=== PATIENT | male | born 1985 | race Caucasian/White ===

== ENCOUNTER 2017-09-05 19:12 | Inpatient (IN) | payer MEDICAID, OTHER ==
[2017-09-05 22:25] LABS: ADD MAN DIFF? NO
[2017-09-05 22:29] LABS: WHITE BLOOD COUNT 18.8 10^3/ul (4.8-10.8)
[2017-09-05 22:29] LABS: BASOPHIL # 0.1 10^3/ul (0.0-0.1); BASOPHILS % 0.3 % (0.0-2.0); EOSINOPHILS # 0.5 10^3/ul (0.0-0.5); EOSINOPHILS % 2.9 % (0.0-7.0); HEMATOCRIT 40.1 % (42.0-52.0); HEMOGLOBIN 14.1 g/dl (14.0-18.0); LYMPHOCYTES # 3.1 10^3/ul (0.8-2.9); LYMPHOCYTES % 16.3 % (15.0-51.0); MEAN CORPUSCULAR HEMOGLOBIN 30.7 pg (29.0-33.0); MEAN CORPUSCULAR HGB CONC 35.2 g/dl (32.0-37.0); MEAN CORPUSCULAR VOLUME 87.2 fl (82.0-101.0); MEAN PLATELET VOLUME 9.6 fl (7.4-10.4); MONOCYTE # 1.4 10^3/ul (0.3-0.9); MONOCYTES % 7.5 % (0.0-11.0); NEUTROPHIL # 13.7 10^3/ul (1.6-7.5); NEUTROPHILS % 72.5 % (39.0-77.0); PLATELET COUNT 311 10^3/UL (140-415); RED CELL DISTRIBUTION WIDTH 10.9 % (11.5-14.5)
[2017-09-05 22:47] LABS: LACTIC ACID 1.8 mmol/L (0.5-2.0)
[2017-09-05 22:49] LABS: INR 1.01; PROTIME 13.4 Sec (11.9-14.9)
[2017-09-05 22:50] LABS: ALANINE AMINOTRANSFERASE 17 IU/L (13-69); ALBUMIN 3.9 g/dl (3.3-4.9); ALBUMIN/GLOBULIN RATIO 1.18; ALKALINE PHOSPHATASE 139 IU/L (42-121); ANION GAP 16 (8-16); ASPARTATE AMINO TRANSFERASE 12 IU/L (15-46); BILIRUBIN,INDIRECT 0.5 mg/dl (0-1.1); BILIRUBIN,TOTAL 0.5 mg/dl (0.2-1.3); BLOOD UREA NITROGEN 9 mg/dl (7-20); CALCIUM 8.6 mg/dl (8.4-10.2); CARBON DIOXIDE 26 mmol/L (21-31); CHLORIDE 101 mmol/L (97-110); GLUCOSE 378 mg/dl (70-220); PARTIAL THROMBOPLASTIN TIME 30.3 Sec (25.0-35.0); POTASSIUM 3.5 mmol/L (3.5-5.1); SODIUM 139 mmol/L (135-144); TOTAL PROTEIN 7.2 g/dl (6.1-8.1)
[2017-09-05 23:05] LABS: TROPONIN-I < 0.012 ng/ml (0.00-0.12)
[2017-09-06] MEDS: morphine 4 MG/ML VIAL IV ×2 (00:38→16:28)
[2017-09-06] MEDS: ONDANSETRON 4 MG INJ IV (00:38)
[2017-09-06 00:50] LABS: LACTIC ACID 1.4 mmol/L (0.5-2.0)
[2017-09-06] MEDS ORDERED: VANCOMYCIN IV PER PHARMACY XX (02:00)
[2017-09-06] MEDS ORDERED: BISACODYL (EC) 5 MG TAB PO (02:00)
[2017-09-06] MEDS ORDERED: NACL 0.9% 3 ML SYG IV (02:00)
[2017-09-06] MEDS ORDERED: DOCUSATE SODIUM 100 MG CAP PO (02:00)
[2017-09-06] MEDS: PIPER-TAZO 3.375 GM IV (PMX) 100 ML IVPB (02:02)
[2017-09-06] MEDS: ACCU-CHEK XX (02:28)
[2017-09-06] MEDS ORDERED: GLUCOSE GEL 15 GRAM TUBE BUCCAL ×2 (02:30→10:00)
[2017-09-06] MEDS ORDERED: GLUCOSE GEL 15 GRAM TUBE PO ×4 (02:30→10:00)
[2017-09-06] MEDS ORDERED: GLUCAGON 1 MG INJ IM ×2 (02:30→10:00)
[2017-09-06] MEDS ORDERED: DEXTROSE 50% 50 ML SYRINGE IV ×4 (02:30→10:00)
[2017-09-06] MEDS: VANCOMYCIN 1 GM (PMX) 250 ML IVPB (02:46)
[2017-09-06] MEDS: HYDROCODONE/APAP (5/325) TAB PO ×3 (03:22→16:07)
[2017-09-06 03:45] LABS: ADD MAN DIFF? NO
[2017-09-06 04:03] LABS: HEMOGLOBIN A1C 7.2 % (0-5.9)
[2017-09-06 04:14] LABS: LACTIC ACID 1.4 mmol/L (0.5-2.0)
[2017-09-06 04:18] LABS: ALANINE AMINOTRANSFERASE 22 IU/L (13-69); ALBUMIN 3.6 g/dl (3.3-4.9); ALBUMIN/GLOBULIN RATIO 1.09; ALKALINE PHOSPHATASE 126 IU/L (42-121); ANION GAP 14 (8-16); ASPARTATE AMINO TRANSFERASE 16 IU/L (15-46); BILIRUBIN,INDIRECT 0.6 mg/dl (0-1.1); BILIRUBIN,TOTAL 0.6 mg/dl (0.2-1.3); BLOOD UREA NITROGEN 9 mg/dl (7-20); CALCIUM 8.5 mg/dl (8.4-10.2); CARBON DIOXIDE 26 mmol/L (21-31); CHLORIDE 107 mmol/L (97-110); CHOL/HDL RATIO 3.3 RATIO; CHOLESTEROL 151 mg/dl (100-200); GLUCOSE 273 mg/dl (70-220); HDL CHOLESTEROL 45 mg/dl (28-63); LDL CHOLESTEROL,CALCULATED 80 mg/dl; MAGNESIUM 1.7 mg/dl (1.7-2.5); POTASSIUM 3.8 mmol/L (3.5-5.1); SODIUM 143 mmol/L (135-144); TOTAL PROTEIN 6.9 g/dl (6.1-8.1); TRIGLYCERIDES 128 mg/dl (0-149)
[2017-09-06 04:20] LABS: WHITE BLOOD COUNT 17.9 10^3/ul (4.8-10.8)
[2017-09-06 04:20] LABS: BASOPHIL # 0.1 10^3/ul (0.0-0.1); BASOPHILS % 0.3 % (0.0-2.0); EOSINOPHILS # 0.5 10^3/ul (0.0-0.5); HEMATOCRIT 38.6 % (42.0-52.0); HEMOGLOBIN 13.7 g/dl (14.0-18.0); MEAN CORPUSCULAR HEMOGLOBIN 30.8 pg (29.0-33.0); MEAN CORPUSCULAR HGB CONC 35.5 g/dl (32.0-37.0); MEAN CORPUSCULAR VOLUME 86.7 fl (82.0-101.0); MEAN PLATELET VOLUME 9.6 fl (7.4-10.4); MONOCYTE # 1.2 10^3/ul (0.3-0.9); MONOCYTES % 6.8 % (0.0-11.0); NEUTROPHIL # 12.9 10^3/ul (1.6-7.5); NEUTROPHILS % 72.3 % (39.0-77.0); PLATELET COUNT 318 10^3/UL (140-415); RED BLOOD COUNT 4.45 10^6/ul (4.70-6.10); RED CELL DISTRIBUTION WIDTH 10.9 % (11.5-14.5)
[2017-09-06] MEDS: KETOROLAC 30 MG INJ IV ×3 (06:43→17:41)
[2017-09-06] MEDS: HEPARIN 5,000 UNIT/0.5 ML VIAL SC ×3 (07:03→20:34)
[2017-09-06] MEDS ORDERED: INSULIN ASPART [NOVOLOG] 3 ML PEN SC (08:00)
[2017-09-06] MEDS: VANCOMYCIN 1 GM 250 ML IVPB ×2 (11:52→17:42)
[2017-09-06] MEDS: INSULIN ASPART [NOVOLOG] 3 ML PEN SC ×5 (12:34→20:34)
[2017-09-06] MEDS: morphine LIQ (10 MG/5 ML) CUP PO (20:32)
[2017-09-06] MEDS: INSULIN GLARGINE [LANtus] 3 ML PEN SC (20:33)
[2017-09-07] MEDS: morphine LIQ (10 MG/5 ML) CUP PO ×3 (00:30→19:55)
[2017-09-07] MEDS: VANCOMYCIN 1 GM 250 ML IVPB ×2 (01:45→09:59)
[2017-09-07] MEDS: KETOROLAC 30 MG INJ IV ×4 (01:45→17:24)
[2017-09-07] MEDS: HEPARIN 5,000 UNIT/0.5 ML VIAL SC ×3 (05:24→21:18)
[2017-09-07 06:18] LABS: ADD MAN DIFF? NO
[2017-09-07 06:23] LABS: BASOPHILS % 0.3 % (0.0-2.0); EOSINOPHILS # 0.5 10^3/ul (0.0-0.5); EOSINOPHILS % 3.6 % (0.0-7.0); HEMATOCRIT 35.8 % (42.0-52.0); HEMOGLOBIN 12.6 g/dl (14.0-18.0); LYMPHOCYTES # 3.6 10^3/ul (0.8-2.9); LYMPHOCYTES % 25.7 % (15.0-51.0); MEAN CORPUSCULAR HEMOGLOBIN 30.7 pg (29.0-33.0); MEAN CORPUSCULAR HGB CONC 35.2 g/dl (32.0-37.0); MEAN CORPUSCULAR VOLUME 87.1 fl (82.0-101.0); MEAN PLATELET VOLUME 9.6 fl (7.4-10.4); MONOCYTE # 0.9 10^3/ul (0.3-0.9); MONOCYTES % 6.7 % (0.0-11.0); NEUTROPHIL # 8.9 10^3/ul (1.6-7.5); NEUTROPHILS % 63.3 % (39.0-77.0); PLATELET COUNT 303 10^3/UL (140-415); RED BLOOD COUNT 4.11 10^6/ul (4.70-6.10); RED CELL DISTRIBUTION WIDTH 10.6 % (11.5-14.5)
[2017-09-07 06:23] LABS: WHITE BLOOD COUNT 14.1 10^3/ul (4.8-10.8)
[2017-09-07 06:43] LABS: PHOSPHORUS 2.7 mg/dl (2.5-4.9)
[2017-09-07 06:43] LABS: ANION GAP 10 (8-16); BLOOD UREA NITROGEN 14 mg/dl (7-20); CALCIUM 8.3 mg/dl (8.4-10.2); CARBON DIOXIDE 31 mmol/L (21-31); CHLORIDE 103 mmol/L (97-110); CREATININE 0.69 mg/dl (0.61-1.24); GLUCOSE 192 mg/dl (70-220); MAGNESIUM 1.6 mg/dl (1.7-2.5); POTASSIUM 3.8 mmol/L (3.5-5.1); SODIUM 140 mmol/L (135-144)
[2017-09-07] MEDS: INSULIN ASPART [NOVOLOG] 3 ML PEN SC ×7 (08:19→21:03)
[2017-09-07 11:40] LABS: VANCOMYCIN,TROUGH 6.2 ug/ml (10.0-20.0)
[2017-09-07] MEDS: MAGNESIUM SULFATE 2 GM/50 ML 50 ML IVPB (12:20)
[2017-09-07] MEDS: HYDROCODONE/APAP (5/325) TAB PO ×2 (17:02→23:02)
[2017-09-07] MEDS: metFORMIN 500 MG TAB PO (17:24)
[2017-09-07] MEDS: VANCOMYCIN 1.25 GM in SOD CHLORIDE 0.9% 250 ML IVPB (19:01)
[2017-09-07] MEDS: INSULIN GLARGINE [LANtus] 3 ML PEN SC (21:01)
[2017-09-07] MEDS: ACETAMINOPHEN 325 MG TAB PO (21:22)
[2017-09-08] MEDS: KETOROLAC 30 MG INJ IV ×4 (00:11→17:50)
[2017-09-08] MEDS: VANCOMYCIN 1.25 GM in SOD CHLORIDE 0.9% 250 ML IVPB ×3 (01:46→17:52)
[2017-09-08] MEDS: HEPARIN 5,000 UNIT/0.5 ML VIAL SC ×3 (06:06→21:45)
[2017-09-08 06:16] LABS: ADD MAN DIFF? NO
[2017-09-08 06:21] LABS: BASOPHIL # 0.1 10^3/ul (0.0-0.1); BASOPHILS % 0.4 % (0.0-2.0); EOSINOPHILS # 0.6 10^3/ul (0.0-0.5); EOSINOPHILS % 5.1 % (0.0-7.0); HEMATOCRIT 36.1 % (42.0-52.0); HEMOGLOBIN 12.7 g/dl (14.0-18.0); LYMPHOCYTES # 3.5 10^3/ul (0.8-2.9); LYMPHOCYTES % 29.2 % (15.0-51.0); MEAN CORPUSCULAR HGB CONC 35.2 g/dl (32.0-37.0); MEAN CORPUSCULAR VOLUME 85.1 fl (82.0-101.0); MEAN PLATELET VOLUME 9.2 fl (7.4-10.4); MONOCYTE # 0.8 10^3/ul (0.3-0.9); MONOCYTES % 6.5 % (0.0-11.0); NEUTROPHILS % 58.1 % (39.0-77.0); PLATELET COUNT 320 10^3/UL (140-415); RED BLOOD COUNT 4.24 10^6/ul (4.70-6.10); RED CELL DISTRIBUTION WIDTH 10.6 % (11.5-14.5)
[2017-09-08 06:21] LABS: WHITE BLOOD COUNT 12.1 10^3/ul (4.8-10.8)
[2017-09-08 06:53] LABS: ANION GAP 12 (8-16); BLOOD UREA NITROGEN 14 mg/dl (7-20); CALCIUM 8.2 mg/dl (8.4-10.2); CARBON DIOXIDE 25 mmol/L (21-31); CHLORIDE 106 mmol/L (97-110); CREATININE 0.52 mg/dl (0.61-1.24); GLUCOSE 237 mg/dl (70-220); POTASSIUM 3.9 mmol/L (3.5-5.1); SODIUM 139 mmol/L (135-144)
[2017-09-08 06:59] LABS: MAGNESIUM 1.8 mg/dl (1.7-2.5)
[2017-09-08 06:59] LABS: PHOSPHORUS 2.9 mg/dl (2.5-4.9)
[2017-09-08] MEDS: INSULIN ASPART [NOVOLOG] 3 ML PEN SC ×7 (08:15→20:56)
[2017-09-08] MEDS: metFORMIN 500 MG TAB PO ×2 (08:27→17:45)
[2017-09-08 10:06] LABS: IRON 45 ug/dl (35-150)
[2017-09-08 10:15] LABS: % IRON SATURATION 24 % SAT (22-52); TOTAL IRON BINDING CAPACITY 186 ug/dl (241-421)
[2017-09-08] MEDS: HYDROCODONE/APAP (5/325) TAB PO (10:39)
[2017-09-08] MEDS: morphine LIQ (10 MG/5 ML) CUP PO ×2 (14:41→19:59)
[2017-09-08] MEDS: INSULIN GLARGINE [LANtus] 3 ML PEN SC (20:58)
[2017-09-09] MEDS: KETOROLAC 30 MG INJ IV ×2 (00:49)
[2017-09-09] MEDS: VANCOMYCIN 1.25 GM in SOD CHLORIDE 0.9% 250 ML IVPB ×2 (02:14→10:18)
[2017-09-09] MEDS: ACCU-CHEK XX (02:16)
[2017-09-09 05:51] LABS: ADD MAN DIFF? NO
[2017-09-09 06:00] LABS: BASOPHIL # 0.1 10^3/ul (0.0-0.1); BASOPHILS % 0.5 % (0.0-2.0); EOSINOPHILS # 0.7 10^3/ul (0.0-0.5); EOSINOPHILS % 5.6 % (0.0-7.0); HEMATOCRIT 36.9 % (42.0-52.0); LYMPHOCYTES # 3.2 10^3/ul (0.8-2.9); LYMPHOCYTES % 26.5 % (15.0-51.0); MEAN CORPUSCULAR HEMOGLOBIN 30.2 pg (29.0-33.0); MEAN CORPUSCULAR HGB CONC 35.2 g/dl (32.0-37.0); MEAN CORPUSCULAR VOLUME 85.6 fl (82.0-101.0); MEAN PLATELET VOLUME 9.4 fl (7.4-10.4); MONOCYTE # 0.8 10^3/ul (0.3-0.9); MONOCYTES % 6.3 % (0.0-11.0); NEUTROPHIL # 7.2 10^3/ul (1.6-7.5); NEUTROPHILS % 59.7 % (39.0-77.0); PLATELET COUNT 375 10^3/UL (140-415); RED BLOOD COUNT 4.31 10^6/ul (4.70-6.10); RED CELL DISTRIBUTION WIDTH 10.5 % (11.5-14.5)
[2017-09-09 06:00] LABS: WHITE BLOOD COUNT 12.1 10^3/ul (4.8-10.8)
[2017-09-09 06:13] LABS: PHOSPHORUS 3.9 mg/dl (2.5-4.9)
[2017-09-09 06:13] LABS: MAGNESIUM 1.6 mg/dl (1.7-2.5)
[2017-09-09 06:15] LABS: ANION GAP 14 (8-16); BLOOD UREA NITROGEN 17 mg/dl (7-20); CALCIUM 8.6 mg/dl (8.4-10.2); CARBON DIOXIDE 30 mmol/L (21-31); CHLORIDE 101 mmol/L (97-110); CREATININE 0.71 mg/dl (0.61-1.24); GLUCOSE 222 mg/dl (70-220); SODIUM 141 mmol/L (135-144)
[2017-09-09] MEDS: HEPARIN 5,000 UNIT/0.5 ML VIAL SC ×2 (06:32→14:00)
[2017-09-09] MEDS: HYDROCODONE/APAP (5/325) TAB PO ×2 (08:01→12:38)
[2017-09-09] MEDS: metFORMIN 500 MG TAB PO (08:23)
[2017-09-09] MEDS: INSULIN ASPART [NOVOLOG] 3 ML PEN SC ×4 (08:25→12:18)
[2017-09-09] MEDS ORDERED: MAGNESIUM SULFATE 2 GM/50 ML 50 ML IVPB (10:00)
[2017-09-09] MEDS: CHOLECALCIFEROL 1,000 UNIT TAB PO (12:35)
[2017-09-09] MEDS: MAGNESIUM CHLORIDE (SR) 64 MG TAB PO (15:40)
[2017-09-09] MEDS ORDERED: metFORMIN 850 MG TAB PO (17:50)
== END 2017-09-09 15:50 | disposition home or self-care (01) | DRG 854 ==
LOC: MS2 09-06 01:19 → E/R 19:12
PROC: 0J9Q0ZX Drainage of Right Foot Subcutaneous Tissue and Fascia, Open Approach, Diagnostic (ICD-10-PCS; principal; 2017-09-06)
PROC: 0JBQ0ZZ Excision of Right Foot Subcutaneous Tissue and Fascia, Open Approach (ICD-10-PCS; 2017-09-07)
DX: A41.9 Sepsis, unspecified organism (principal); L02.611 Cutaneous abscess of right foot; L03.115 Cellulitis of right lower limb; L97.419 Non-pressure chronic ulcer of right heel and midfoot with unspecified severity; M86.9 Osteomyelitis, unspecified; E11.65 Type 2 diabetes mellitus with hyperglycemia; B95.62 Methicillin resistant Staphylococcus aureus infection as the cause of diseases classified elsewhere; F17.210 Nicotine dependence, cigarettes, uncomplicated; S90.31XA Contusion of right foot, initial encounter; S90.821A Blister (nonthermal), right foot, initial encounter; W18.40XA Slipping, tripping and stumbling without falling, unspecified, initial encounter; Y93.01 Activity, walking, marching and hiking
CPT/HCPCS: 36415; 71045; 73630; 73718; 80048; 80053; 80061; 80202; 82306; 82652; 82728; 82962; 83036; 83540; 83605; 83735; 84100; 84443; 84484; 85025; 85610; 85730; 87040; 87070; 87081; 93005; 96374; 96375; 99285-25